=== PATIENT | female | born 1955 | race Two or more races ===

== ENCOUNTER 2018-12-21 17:41 | Emergency (ER) | payer SELFPAY ==
[~2018-12-21] VITALS: Ht 165.1 cm; Wt 70.3 kg
[2018-12-21 18:07] LABS: HEMOGLOBIN 12.9 g/dL (11.5-14.8); PLATELET COUNT (AUTO) 219 /CMM (150-450)
--- NOTE | 2018-12-21 18:08 | NUR ---
L sided chest pain, radiating to the L arm for the past 15 days. Breathing even and unlabored, No sob noted, placed on the monitor. VSS. will monitor.
[2018-12-21 18:10] LABS: BASOPHILS % (AUTO) 0.5 % (0.0-2.0); EOSINOPHILS % (AUTO) 2.5 % (0.0-6.0); HEMATOCRIT 38 % (33-45); LYMPHOCYTES % (AUTO) 33.6 % (20.0-44.0); MEAN CORPUSCULAR HGB CONC 34 g/dl (31.0-36.0); MEAN CORPUSCULAR VOLUME 93 fL (82-100); MONOCYTES # (AUTO) 0.7 /CMM (0.1-1.30); MONOCYTES % (AUTO) 11.6 % (2.0-12.0); NEUTROPHILS % (AUTO) 51.8 % (43.0-81.0); RED BLOOD CELL COUNT(AUTO) 4.06 MIL/uL (4.0-5.2); WHITE BLOOD COUNT (AUTO) 5.8 K/uL (4.3-11.0)
[2018-12-21 18:13] LABS: CALCIUM, SERUM 8.7 mg/dL (8.5-10.1); CARBON DIOXIDE 27 mmol/L (21-32); CHLORIDE 104 mmol/L (98-107); GLUCOSE 98 mg/dL (74-106); SODIUM SERUM 139 mmol/L (136-145); UREA NITROGEN, BLOOD 17 mg/dL (7-18)
--- NOTE | 2018-12-21 19:33 | NUR ---
PATIENT ENDORSED TO NURSING PROGRAM CHAIR NURSE. PATIENT IN STABLE CONDITION. NO DISTRESS NOTED. DENIES CHEST PAIN AT THIS TIME.
--- NOTE | 2018-12-21 20:31 | NUR ---
IV removed. Catheter intact and site benign. Pressure and 4x4 applied to site. No bleeding noted.
[2018-12-21 20:32] VITALS: BP 138/70
--- NOTE | 2018-12-21 20:32 | NUR ---
Patient discharged to home in stable condition. Written and verbal after care instructions given. Patient verbalizes understanding of instruction.
== END 2018-12-21 20:33 | disposition home or self-care (01) ==
LOC: ER 17:45
DX: I48.91 Unspecified atrial fibrillation (principal); F41.9 Anxiety disorder, unspecified; R06.02 Shortness of breath; R20.2 Paresthesia of skin; I10 Essential (primary) hypertension; Z60.2 Problems related to living alone
CPT/HCPCS: 36415; 71045-TC; 80048-TC; 84484-TC; 85025-TC